=== PATIENT | male | born 2000 | race African-American/Black ===

== ENCOUNTER 2023-12-19 15:34 | Emergency (ER) | payer MEDICAID ==
[~2023-12-19] VITALS: Ht 182.9 cm; Wt 87.0 kg
[2023-12-19 15:40] VITALS: O2SAT 98
[2023-12-19] MEDS ORDERED: ACETAMINOPHEN 325MG TABLET PO ONE (16:00)
[2023-12-19] MEDS ORDERED: METH-653 MT (17:11)
[2023-12-19 17:35] VITALS: BP 115/69; PULSE 66; RESP 18; TEMP 98.7
== END 2023-12-19 17:45 | disposition home or self-care (01) ==
LOC: EDBD 15:43 → ER 15:43
DX: S09.90XA Unspecified injury of head, initial encounter (principal); M54.2 Cervicalgia; M54.9 Dorsalgia, unspecified; M25.552 Pain in left hip; M25.522 Pain in left elbow; V98.8XXA Other specified transport accidents, initial encounter; Y93.89 Activity, other specified; Y92.89 Other specified places as the place of occurrence of the external cause; Y99.8 Other external cause status
CPT/HCPCS: 73080; 73502; 99284